=== PATIENT | male | born 1995 | race African-American/Black ===

== ENCOUNTER 2016-10-02 19:46 | Inpatient (IN) | payer BC ==
[~2016-10-02] VITALS: Ht 190.5 cm; Wt 85.2 kg
[2016-10-02] MEDS ORDERED: SODIUM CHLORIDE 0.9% 1,000ML IVBOLUS ONE (20:00)
[2016-10-02] MEDS ORDERED: MORPHINE SULFATE 4 MG/ML, 1ML IVPush PRN (20:00)
[2016-10-02] MEDS ORDERED: PANTOPRAZOLE 40 MG IV IVPush ONE (20:00)
[2016-10-02] MEDS ORDERED: SODIUM CHLORIDE FLUSH 10ML SYR IVF ONE (20:00)
[2016-10-02] MEDS ORDERED: ONDANSETRON 2MG/ML, 2ML IVPush ONE (20:00)
[2016-10-02] MEDS ORDERED: PANTOPRAZOLE 80 MG in SODIUM CHLORIDE 0.9% 50 ML IVPB ONE (20:11)
[2016-10-02 20:16] LABS: HEMATOCRIT 35.2 % (39.2-51.8); WHITE BLOOD COUNT 8.9 x10^3/uL (3.4-10)
[2016-10-02] MEDS ORDERED: ONDANSETRON 2MG/ML, 2ML ONE (20:16)
[2016-10-02 20:26] LABS: ASPARTATE AMINO TRANSFERASE 18 U/L (15-37); BLOOD UREA NITROGEN 32 mg/dL (7-18)
[2016-10-02] MEDS: PANTOPRAZOLE 80 MG in SODIUM CHLORIDE 0.9% 100 ML IV SCH ×2 (20:48→22:00)
[2016-10-02] MEDS ORDERED: POTASSIUM CHLORIDE 40 MEQ in SODIUM CHLORIDE 0.9% 500 ML IV ONE (22:00)
[2016-10-02] MEDS ORDERED: ACETAMINOPHEN 325 MG TABLET PO PRN (22:00)
[2016-10-02] MEDS ORDERED: ONDANSETRON 2MG/ML, 2ML IVPush PRN (22:00)
[2016-10-02] MEDS ORDERED: METOCLOPRAMIDE 5 MG/ML, 2ML IVPush PRN (22:00)
[2016-10-02] MEDS ORDERED: PROMETHAZINE 25 MG/ML, 1ML IM PRN (22:00)
[2016-10-02] MEDS: SODIUM CHLORIDE 0.9% 1,000 ML IV SCH (22:26)
[2016-10-02 23:00] VITALS: BP 125/71
[2016-10-02 23:03] LABS: HEMATOCRIT 31.4 % (39.2-51.8); HEMOGLOBIN 10.9 g/dL (13.7-18.0)
[2016-10-03 04:32] LABS: HEMATOCRIT 28.8 % (39.2-51.8); HEMOGLOBIN 9.9 g/dL (13.7-18.0); WHITE BLOOD COUNT 7.1 x10^3/uL (3.4-10)
[2016-10-03 04:47] LABS: ASPARTATE AMINO TRANSFERASE 12 U/L (15-37); BLOOD UREA NITROGEN 29 mg/dL (7-18)
[2016-10-03] MEDS: PANTOPRAZOLE 80 MG in SODIUM CHLORIDE 0.9% 100 ML IV SCH ×3 (06:11→23:25)
[2016-10-03] MEDS ORDERED: MIDAZOLAM 1 MG/ML, 5ML ONE (07:18)
[2016-10-03] MEDS ORDERED: FENTANYL PF 100 MCG/2ML ONE (07:18)
[2016-10-03 10:00] LABS: HEMATOCRIT 26.8 % (39.2-51.8); HEMOGLOBIN 9.2 g/dL (13.7-18.0)
[2016-10-03] MEDS ORDERED: EPINEPHRINE SYRINGE 0.1 MG/ML, 10ML ONE (10:59)
[2016-10-03] MEDS: SODIUM CHLORIDE 0.9% 1,000 ML IV SCH ×2 (14:28→20:55)
[2016-10-03 21:40] LABS: HEMATOCRIT 25.5 % (39.2-51.8); HEMOGLOBIN 8.6 g/dL (13.7-18.0)
[2016-10-04 03:59] LABS: HEMATOCRIT 23.7 % (39.2-51.8); HEMOGLOBIN 8.2 g/dL (13.7-18.0)
[2016-10-04 08:36] LABS: ASPARTATE AMINO TRANSFERASE 19 U/L (15-37); BLOOD UREA NITROGEN 17 mg/dL (7-18)
[2016-10-04 08:39] LABS: FERRITIN 104.5 ng/mL (26-388); TOTAL IRON BINDING CAPACITY 148 mcg/dL (250-450)
[2016-10-04 08:58] LABS: HEMOGLOBIN 8.1 g/dL (13.7-18.0); WHITE BLOOD COUNT 4.1 x10^3/uL (3.4-10)
[2016-10-04] MEDS: SUCRALFATE 1 GM TABLET PO SCH ×4 (10:00→20:33)
[2016-10-04 10:41] LABS: HEMATOCRIT 25.3 % (39.2-51.8); HEMOGLOBIN 8.8 g/dL (13.7-18.0)
[2016-10-04] MEDS: SODIUM CHLORIDE 0.9% 1,000 ML IV SCH ×3 (10:47→20:51)
[2016-10-04] MEDS: PANTOPRAZOLE 80 MG in SODIUM CHLORIDE 0.9% 100 ML IV SCH ×2 (10:51→23:04)
[2016-10-04 19:13] LABS: HEMATOCRIT 23.2 % (39.2-51.8); HEMOGLOBIN 7.9 g/dL (13.7-18.0)
[2016-10-04 19:49] VITALS: BP 112/65
[2016-10-05 04:18] VITALS: BP_SYST 94; BP_SYST 97; BP_DIAS 48; BP_DIAS 58
[2016-10-05 07:08] VITALS: BP 110/65
[2016-10-05 07:36] LABS: HEMATOCRIT 24.7 % (39.2-51.8); HEMOGLOBIN 8.6 g/dL (13.7-18.0)
[2016-10-05] MEDS: SUCRALFATE 1 GM TABLET PO SCH ×4 (10:18→21:48)
[2016-10-05] MEDS: PANTOPRAZOLE 80 MG in SODIUM CHLORIDE 0.9% 100 ML IV SCH ×2 (11:45→21:48)
[2016-10-05] MEDS: OMEPRAZOLE 20 MG CAPSULE.DR PO SCH ×2 (11:46→21:48)
[2016-10-05] MEDS: SODIUM CHLORIDE 0.9% 1,000 ML IV SCH (12:00)
[2016-10-05 18:58] VITALS: BP 93/60
[2016-10-06 01:41] VITALS: BP 107/60
[2016-10-06 08:10] VITALS: BP 99/60
[2016-10-06] MEDS: OMEPRAZOLE 20 MG CAPSULE.DR PO SCH (08:36)
[2016-10-06] MEDS: SUCRALFATE 1 GM TABLET PO SCH ×2 (08:36→11:07)
[2016-10-06 08:40] VITALS: BP 99/61
[2016-10-06] MEDS: PANTOPRAZOLE 80 MG in SODIUM CHLORIDE 0.9% 100 ML IV SCH (08:41)
[2016-10-06] MEDS ORDERED: SUCR1TAB33 PO (10:45)
[2016-10-06] MEDS ORDERED: OMEP-110 PO (10:45)
[2016-10-06] MEDS ORDERED: AMOX-291 PO (11:37)
[2016-10-06] MEDS ORDERED: CLAR500T PO (11:38)
[2016-10-06] MEDS ORDERED: PNEUMOCOCCAL 23 VACCINE IM-VACC ONE (12:00)
[2016-10-08 20:07] LABS: HELICOBACTER PYLORI IGG 4.7 U/mL (0.0-0.8); HELICOBACTER PYLORI IGM <9.0 units (0.0-8.9)
== END 2016-10-06 12:31 | disposition home or self-care (01) | DRG 377 ==
LOC: ED 20:50 → EDIP 20:52 → SUATTDRO 21:18 → ED 21:20 → CCU 22:33 → 5SO 10-04 19:20
PROVIDERS: ADMIT Internal Medicine; ATTEND Internal Medicine
PROC: 3E0G8GC Introduction of Other Therapeutic Substance into Upper GI, Via Natural or Artificial Opening Endoscopic (ICD-10-PCS; 2016-10-03)
PROC: 0W3P8ZZ Control Bleeding in Gastrointestinal Tract, Via Natural or Artificial Opening Endoscopic (ICD-10-PCS; principal; 2016-10-03 07:30)
DX: K92.2 Gastrointestinal hemorrhage, unspecified (principal); R57.1 Hypovolemic shock; D62 Acute posthemorrhagic anemia; K26.9 Duodenal ulcer, unspecified as acute or chronic, without hemorrhage or perforation; K29.70 Gastritis, unspecified, without bleeding; I95.1 Orthostatic hypotension; F17.210 Nicotine dependence, cigarettes, uncomplicated; F12.90 Cannabis use, unspecified, uncomplicated; E87.6 Hypokalemia; Z90.49 Acquired absence of other specified parts of digestive tract
CPT/HCPCS: 36415; 80053; 82728; 83540; 83550; 83690; 83735; 84100; 85014; 85018; 85025; 85610; 85730; 86677; 86850; 86900; 87081; 87324; 90732; 93005; 96365; 96375; 99152; 99153; J2250; J2405; J3010; J3480; C9113; J7030; J7040